=== PATIENT | female | born 1950 ===

== ENCOUNTER → 2021-10-03 09:46 | Outpatient (BNVA) | payer MEDICARE, SELFPAY | PROVIDERS: PCP Internal Medicine; Visit Provider Nurse Practitioner Family | DX: G43.009 Migraine without aura, not intractable, without status migrainosus (principal); R25.1 Tremor, unspecified; R29.6 Repeated falls | CPT/HCPCS: 99212 ==

== ENCOUNTER → 2022-02-21 14:07 | Outpatient (BNVA) | payer MEDICARE, SELFPAY | PROVIDERS: PCP Internal Medicine; Visit Provider Nurse Practitioner Family | DX: G43.009 Migraine without aura, not intractable, without status migrainosus (principal); R25.1 Tremor, unspecified | CPT/HCPCS: Q3014 ==

== ENCOUNTER → 2022-06-28 09:16 | Outpatient (BNVA) | payer MEDICARE, SELFPAY | PROVIDERS: PCP Internal Medicine; Visit Provider Nurse Practitioner Family | DX: G43.009 Migraine without aura, not intractable, without status migrainosus (principal); R25.1 Tremor, unspecified; C08.9 Malignant neoplasm of major salivary gland, unspecified | CPT/HCPCS: 99212 ==

== ENCOUNTER → 2022-09-27 10:44 | Outpatient (BNVA) | payer MEDICARE, SELFPAY | PROVIDERS: PCP Internal Medicine; Visit Provider Nurse Practitioner Family | DX: G43.009 Migraine without aura, not intractable, without status migrainosus (principal) | CPT/HCPCS: 99212 ==

== ENCOUNTER 2024-10-23 13:10 | Outpatient (AMB) | payer MEDICARE, SELFPAY ==
--- NOTE | 2024-10-23 13:23 | MHC.OFFVIS ---
Vital Signs 10/23/24 13:28 BP 130/80 Blood Pressure Location Rt brachial Pulse 82 Pulse Source Pulse Oximeter Pulse Oximetry (%) 93 Oxygen Delivery Method Room Air Intake Visit Reasons: Follow up Intake Note: Patient presents follow up for Migraines. Interventional Physician Required: No Accompanied by: Self / Same As Patient Allergies No Known Allergies Allergy (Verified 09/27/22 11:21) HPI Comments Details: 73-yr-old female presents for f/u visit of migraine. Pt was last seen here in August 2022. Pt repoirts she recently developed a non-traumatic pelvic fracture. On Fosamax. She is f/b endocrinology. She continues to be f/b Dr Escoto s/p right mandibulectomy. She does still have residual word slurring and some lingual numbness. No longer having the right jaw pain- so stopped Gabapentin. Continues on tramadol bid for osteoarthritis- f/b Dr Fernandez at [facility]. Notes recent hip x-ray- did not show arthritis. She did have an interval cardiac work-up due to chest pain s/s- which pt attributes to indigestion d/t not being able to chew as well d/t missing the lower back teeth. Cardiac work-up was normal per pt. States her migraine attacks have been stable, has noted a slight intake more recently. Some weeks, has no migraine attacks and other weeks can have 6 migraine attacks per week. She does notice food cravings prior to onset of migraine- pickles and spinach. She can have migraine attack without headache as well. Uses Sumatriptan and Fioricet is still helpful, even uses it for non-headache migraine. She is wondering about what supplements are good for memory. She states she has never been good at remembering dates, people's names. Her brother asked her to talk to us about her memory. She is sleeping better- does wake up in the middle of the night- to take an arthritis tylenol- which helps. Her tremor is stable- some days better than others. Some days it is harder to write. Propranolol is still helping, and she is tolerating it well. [facility] Medical History (Updated 10/23/24 @ 14:22 by CANDY Jay) Pelvic fracture DORIS (obstructive sleep apnea) Surgical History (Updated 10/23/24 @ 13:27 by Lore Daniels CMA) History of knee replacement History of cancer surgery Social History Household Members: Spouse Alcohol intake: never Patient Tobacco Use Status: Never used Tobacco Current occupational status: retired Physical Exam Vital Signs: Last Vital Signs Pulse 82 10/23/24 13:28 BP 130/80 10/23/24 13:28 Pulse Ox 93 10/23/24 13:28 Oxygen Delivery Method Room Air 10/23/24 13:28 Const General: cooperative and no acute distress Orientation/consciousness: patient oriented x3 HEENT Head: Yes normocephalic Resp Effort & Inspection: normal respiratory effort and able to speak in complete sentences Neuro Other: BUE mild postural tremor. Mild BUE tone. FFM intact. Foot taps- ok on the right, unable to do on left d/t pelvic fx. Steady gait with elevated walker General: patient oriented x3 and CN's II-XI intact bilaterally (w/ exception of mild right lower facial swelling and rt lip/tongue numbness) Cognition (Neuro): normal cognition Psych Appearance: grossly normal Mental Status: mental status grossly normal Speech and movement: Clear speech present Affect: normal affect Attitude: cooperative Thought process: Normal thought process present Thought content: Normal thought content present Insight: Good insight present (Psych) Judgement: Good judgement present (Psych) Assessment & Plan Assessment & Plan (1) Migraine without aura: Code(s): G43.009 - Migraine without aura, not intractable, without status migrainosus Category: Medical (2) Tremor: Code(s): R25.1 - Tremor, unspecified Category: Medical (3) DORIS (obstructive sleep apnea): Comment: Since 2008 has tried several different types of CPAP masks, which all failed. Using mandibular device. Code(s): G47.33 - Obstructive sleep apnea (adult) (pediatric) Category: Medical Plan For memory: Pt is A&O x's 3- was able to report her complex medical history without difficulty- pt is not presenting w/ s/s worsisome for cognitive impairment. However, will complete a MMSE at f/u appt. Encouraged to increase cognitive and socially engaging activities. When able, increase physical activity- such as water exercises. For tremor: Continue Propranolol LA 80 mg qd (may also be preventing headaches). Pt has stopped Gabapentin. For headache: Continue Magnesium. Continue Tylenol and Fiorinal prn. Continue Sumatriptan prn. Could consider trial of Ubrelvy or Nurtec, or CGRP MaB, or sumatriptan nasal or inj. Previous trials: Topiramate 25mg- not tolerated. Contraindications- TCAs d/t polypharmacy and age > 70yo. For DORIS- Hold Mandibular device until fully recovered from surgery. f/u in 6 months or sooner prn Coding Level of Care Code Est Pt Level 4 (55258) Diagnoses Migraine without aura G43.009 Tremor R25.1 DORIS (obstructive sleep apnea) G47.33
[2024-10-23 13:28] VITALS: BP 130/80; PULSE 82; O2SAT 93
--- OUTSIDE RECORDS SUMMARY | 2024-10-23 15:31 | XMS_ITS ---
Author Name [facility] ([place], [place]) Organization Unknown History of Medication Use Medication Directions Dispensed Refills Start Date End Date Stat us gabapentin (NEURONTIN) 100 MG capsule Take 1 capsule (100 mg total) by mouth 3 (three) times a day. 06/30/2022 active oxyCODONE-acetaminop hen (PERCOCET) 5-325 mg per tablet Take 1 tablet by mouth every 4 (four) hours as needed for severe pain. Max Daily Amount: 6 tablets 05/16/2022 active traMADol (ULTRAM) 50 MG tablet Take 1-2 tablets (50-100 mg total) by mouth 3 (three) times a day as needed. 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 ProblemAct [facility] Immunizations Vaccine Date Source Lot Number Status Covid-19 MRNA Vaccine - Pfiz er 12+ (Purple Cap) 11/09/2021 [facility] UNABLE TO READ completed Covid-19 MRNA Vaccine - Pfiz er 12+ (Purple Cap) 04/17/2021 [facility] [id number] completed Covid-19 MRNA Vaccine - Pfiz er 12+ (Purple Cap) 09/21/2020 [facility] [id number] completed Covid-19 MRNA Vaccine - Pfiz er 12+ (Purple Cap) 09/01/2020 [facility] [id number] completed Encounters Encounter Type Encounter Reason Primary Diagnosis Location Date Ambulatory Follow-up Follow-up [facility] 10/08/2024 Emergency Jaw pain [facility] 06/30/2022 Ambulatory Malignant [place]la sm of mouth, unspecified [facility] 05/16/2022 Ambulatory [facility]CIN[facility] 04/05/2022 Care Team Organization Name Specialty Phone Email Start Date End Da te [facility] 06/30/2022 [facility] 05/16/2022 05/16/2022 [facility] 05/16/2022 [facility] 04/05/20222021
--- OUTSIDE RECORDS SUMMARY | 2024-10-23 15:31 | XMS_ITS | Clinical Summary ---
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 03/10/2022 Active diclofenac (VOLTAREN) 1 % gel APPLY 1 TO 3 GRAMS TO AFFECTED AREA 3 TO 4 TIMES PER DAY 02/24/2022 Active estradiol (ESTRACE) 0.01 % vaginal cream 04/04/2022 Act patrick fluticasone (FloNASE) 50 mcg/spray nasal spray 2 sprays daily. 02/24/2022 Active traMADol (ULTRAM) 50 MG tablet Take 1-2 tablets (50-100 mg total) by mouth 3 (three) times a day as needed. FOR PAIN 03/31/2022 Active propranolol (INDERAL LA) 80 MG 24 hr capsule Take 1 capsule (80 mg total) by mouth every morning. 02/21/2022 Active spironolactone (ALDACTONE) 25 MG tablet Take 1 tablet (25 mg total) by mouth every morning. 03/30/2022 Active fexofenadine-ps eudoephedrine (ADELINE-D) 60-120 MG per 12 hr tablet Take 1 tablet by mouth 2 (two) times a day. Active alendronate (FOSAMAX) 70 MG tablet Take 1 tablet (70 mg total) by mouth every 7 days. Take with a full glass of water; do not lie down for the next 30 min. Active oxyCODONE-aceta minophen (PERCOCET) 5-325 mg per tabletIndicatio ns:Oral cavity carcinoma (HCC) Take 1 tablet by mouth every 4 (four) hours as needed for severe pain. Max Daily Amount: 6 tablets 20 tablet 05/16/2022 Active gabapentin (NEURONTIN) 100 MG capsule Take 1 capsule (100 mg total) by mouth 3 (three) times a day. 10 capsule 06/30/2022 Active Active Problems Problem Noted Date Diagnosed Date Oral cavity carcinoma 05/16/2022 Encounters Date Type Department Care Team Description 10/08/2024 10:00 AM EDT Office Visit [facility] [address], [address] [place] [address] Francois Escoto MD Oral cavity carcinoma (HCC) (Primary Dx) from Last 3 Months Immunizations Immunization Administration Dates Next Due Covid-19 MRNA Vaccine - Pfiz er 12+ (Purple Cap) 11/09/2021,04/17/2021,09/21/2020,2020 Social History Tobacco Use Types Packs/Day Years Used Date Smoking Tobacco: Never Smokeless Tobacco: Never Tobacco Cessation:Counseling Given: Not Answered Alcohol Use Standard Drinks/Week Comments Never 0 (1 standard drink = 0.6 oz pur e alcohol) Comments Unknown Sex and Gender Information Value Date Recorded Sex Assigned at Not on file Legal Sex Female 3:38 PM EDT Gender Identity Not on file Sexual Orientation Not on file Last Filed Vital Signs Vital Sign Reading Time Taken Comments Blood Pressure 137/60 06/30/2022 12:17 PM EST Pulse 79 06/30/2022 12:17 PM EST Temperature 36 ??C (96.8 ??F) 06/30/2022 12:17 PM EST Respiratory Rate 18 06/30/2022 12:17 PM EST Oxygen Saturation 97% 06/30/2022 12:17 PM EST Inhaled Oxygen Concentration - - Weight 116 kg (255 lb) 10/08/2024 10:01 AM EDT Height 175.3 cm (5' 9 ) 10/08/2024 10:01 AM EDT Body Mass Index 37.66 10/08/2024 10:01 AM EDT Plan of Treatment Upcoming Encounters Date Type Department Care Team (Late st Contact Info) Description 05/13/2025 10:00 AM EST Office Visit [facility] [address], [address] [place] [phone] Francois Escoto MD [address] [address] Health Maintenance Due Date Last Done Comments Hepatitis C Virus Screening 1950 DTaP/Tdap/Td Vaccines (1 - Tdap) 1969 Pneumococcal Vaccines 50+ (1 of 2 - PCV) 1969 Zoster (Shingles) Vaccine (1 of 2) 1969 Mammogram 1990 Colonoscopy 11/23/1995 DXA Bone Density (Females,Ages 65 and older) 11/23/2015 COVID-19 Vaccine (2023- season) 2024 11/09/2021, 11/09/2021, 04/17/2021, Additional history exists RSV Vaccine 60 years and older and Patients (1 - 1-dose 75+ series) 2025 Influenza Vaccine Completed 04/10/2024, , 04/17/2022, Additional history exists Hepatitis B Vaccines Aged Out No long er eligible based on patient's age to complete this topic Insurance [employer] [place] [employer] MEDICARE Advance Directives * Full Code (Latest Code Status on File) Date Activated Date Inactivated Comments 05/16/2022 6:59 AM 06/30/2022 12:07 PM Care Teams Antique Furniture Repairer Relationship Specialty Start Date End Date Leonid Francois MD [address] [place] [id number] PCP - General Internal Medicine 05/11/22
== END 2024-10-23 14:32 | disposition home or self-care (01) ==
LOC: HO.HSMS 13:11
PROVIDERS: PCP Internal Medicine; Visit Provider Nurse Practitioner Family
DX: G43.009 Migraine without aura, not intractable, without status migrainosus (principal); R25.1 Tremor, unspecified; G47.33 Obstructive sleep apnea (adult) (pediatric)
CPT/HCPCS: 99214

== ENCOUNTER → 2024-10-23 13:10 | Outpatient (BNVA) | payer MEDICARE, SELFPAY | PROVIDERS: PCP Internal Medicine; Visit Provider Nurse Practitioner Family | DX: G43.009 Migraine without aura, not intractable, without status migrainosus (principal); G47.33 Obstructive sleep apnea (adult) (pediatric); R25.1 Tremor, unspecified | CPT/HCPCS: 99212 ==